=== PATIENT | female | born 1985 | race African-American/Black ===

== ENCOUNTER 2020-01-29 09:18 | Emergency (ER) | payer OTHER ==
[2020-01-29 09:55] LABS: #Basophils 0.1 thou/uL (0.0-0.2); #Eosinphils 0.1 thou/uL (0.0-0.7); #Monocytes 0.5 thou/uL (0.11-0.59); #Neutrophils 4.6 thou/uL (1.40-6.50); %Basophils 0.7 % (0.0-1.0); %Eosinophils 1.8 % (0.0-10.0); %Lymphocytes 27.5 % (21.0-51.0); %Monocytes 6.8 % (0.0-10.0); %Neutrophils 63.2 % (42.0-75.0); Hemoglobin 14.1 g/dL (12.0-16.0); Mean Corpuscular HGB CONC 33.7 g/dL (32.0-36.0); Mean Corpuscular Hemoglobin 32.7 pg (27.0-31.0); Platelet Count 200 thou/uL (130-400); White Blood Cell (WBC) Count 7.2 thou/uL (4.8-10.8)
[2020-01-29 10:33] LABS: Anion Gap 13 mmol/L (10-20); BUN (Urea Nitrogen) 12 mg/dL (7.0-18.7); Calc. Creatinine Clearance 0 mL/min (70-130); Carbon Dioxide 22 mmol/L (22-29); Chloride 105 mmol/L (98-107); Potassium 4.3 mmol/L (3.5-5.1); Sodium 136 mmol/L (136-145)
[2020-01-29 10:34] LABS: ALT (SGPT) 17 U/L (8-55); AST (SGOT) 24 U/L (5-34); Albumin 3.4 g/dL (3.5-5.0); Alkaline Phosphatase 101 U/L (40-110); Bilirubin, Total 0.3 mg/dL (0.2-1.2); Calcium 8.1 mg/dL (7.8-10.44); Globulin 3.8 g/dL (2.4-3.5); Glucose 97 mg/dL (70-105); Protein, Total 7.2 g/dL (6.0-8.3)
[2020-01-29 10:47] LABS: Bacteria/HPF None Seen HPF (None Seen); Bilirubin Negative (Negative); Blood, Urine 3+ (Negative); Clarity Clear (Clear); Glucose, Urine (Dipstick) Normal (Negative); Ketone, Urine Negative (Negative); Leukocyte Negative Leu/uL (Negative); Mucous/LPF 1+ LPF (<2+); Nitrite Negative (Negative); Protein, Urine (Dipstick) 10 mg/dL (Neg-Trace); RBC/HPF Greater than 50 HPF (0-3); Specific Gravity, Urine 1.017 (1.002-1.036); Squamous Epithelial 0-3 HPF (0-3); Urobilinogen Normal mg/dL (Less than 2); WBC/HPF 0-3 HPF (0-3); pH, Urine 6.5 (5.0-9.0)
--- NOTE | 2020-01-29 11:01 | ULT ---
PELVIC ULTRASOUND: HISTORY: Vaginal bleeding in a patient that is 7 weeks . TECHNIQUE: Multiplanar, hewitt scale, and color Doppler images were obtained in a transabdominal and transvaginal pelvic ultrasound. Spectral analysis of the Doppler waveforms of the ovaries was performed. FINDINGS: No gestational sac is seen within the uterus. The endometrial stripe is normal in thickness measurin g 7 mm. No free fluid is seen in the pelvis. Both ovaries are normal in size and appearance and demonstrate normal internal flow. A dominant follicle is seen in the right ovary measuring 1.5 cm in size. No e ctopic is identified. IMPRESSION: No evidence of intrauterine or ectopic . POS: [facility]
== END 2020-01-29 11:42 | disposition home or self-care (01) ==
LOC: ERS 09:18
DX: N93.9 Abnormal uterine and vaginal bleeding, unspecified (principal); I10 Essential (primary) hypertension; F17.210 Nicotine dependence, cigarettes, uncomplicated; Z79.899 Other long term (current) drug therapy
CPT/HCPCS: 36415; 76856; 80053; 81003; 81015; 84702; 85025; 86900; 86901

== ENCOUNTER 2021-04-13 12:25 | Inpatient (IN) | payer OTHER ==
[2021-04-13 12:58] LABS: #Basophils 0.1 thou/uL (0.0-0.2); #Eosinphils 0.1 thou/uL (0.0-0.7); #Lymphocytes 2.3 thou/uL (1.20-3.40); #Monocytes 0.7 thou/uL (0.11-0.59); #Neutrophils 8.7 thou/uL (1.40-6.50); %Basophils 0.8 % (0.0-1.0); %Eosinophils 0.8 % (0.0-10.0); %Lymphocytes 19.4 % (21.0-51.0); %Monocytes 5.8 % (0.0-10.0); %Neutrophils 73.2 % (42.0-75.0); Hemoglobin 14.3 g/dL (12.0-16.0); Mean Corpuscular HGB CONC 33.2 g/dL (32.0-36.0); Mean Corpuscular Hemoglobin 32.1 pg (27.0-31.0); Mean Corpuscular Volume 96.6 fL (78.0-98.0); Mean Platelet Volume 8.7 fL (7.4-10.4); Platelet Count 202 thou/uL (130-400); RBC Distribution Width 14.3 % (11.5-14.5); Red Blood Cell (RBC) Count 4.47 mill/uL (4.20-5.40); White Blood Cell (WBC) Count 11.9 thou/uL (4.8-10.8)
[2021-04-13 13:30] LABS: ALT (SGPT) 13 U/L (8-55); AST (SGOT) 19 U/L (5-34); Albumin 3.9 g/dL (3.5-5.0); Alkaline Phosphatase 141 U/L (40-110); Anion Gap 14 mmol/L (10-20); BUN (Urea Nitrogen) 14 mg/dL (7.0-18.7); Bilirubin, Total 0.6 mg/dL (0.2-1.2); Calc. Creatinine Clearance 0 mL/min (70-130); Calcium 9.2 mg/dL (7.8-10.44); Carbon Dioxide 34 mmol/L (22-29); Chloride 90 mmol/L (98-107); Globulin 4.2 g/dL (2.4-3.5); Glucose 91 mg/dL (70-105); Protein, Total 8.1 g/dL (6.0-8.3); Sodium 136 mmol/L (136-145)
[2021-04-13] MEDS ORDERED: niCARdipine 25 MG/10 ML VIAL ONE (13:46)
[2021-04-13] MEDS ORDERED: Benzocaine 20% Spray 60 ML CAN ONE (13:58)
[2021-04-13] MEDS ORDERED: Acetaminophen 500 MG TAB ONE (13:58)
[2021-04-13] MEDS ORDERED: Potassium Chloride 20 MEQ TAB ONE (13:58)
[2021-04-13 14:06] LABS: BHCG - Serum Negative (NEGATIVE); Pregs Control Background? CLEAR/WHITE (CLR/WHITE); Pregs Control Bar Appear? YES (CONTROL BAR)
[2021-04-13 14:08] LABS: CKMB 1.5 ng/mL (0-6.6)
[2021-04-13] MEDS ORDERED: NS 0.9% w/ 20 MEQ KCL 1,000 ML ONE (14:20)
[2021-04-13] MEDS ORDERED: Ibuprofen 200 MG TAB ONE (15:20)
[2021-04-13 15:25] LABS: Bacteria/HPF None Seen HPF (None Seen); Bilirubin Negative (Negative); Blood, Urine 3+ (Negative); Clarity Clear (Clear); Glucose, Urine (Dipstick) Normal (Negative); Ketone, Urine Negative (Negative); Leukocyte Negative Leu/uL (Negative); Nitrite Negative (Negative); Protein, Urine (Dipstick) 50 mg/dL (Neg-Trace); Specific Gravity, Urine 1.006 (1.002-1.036); Squamous Epithelial 0-3 HPF (0-3); Urobilinogen Normal mg/dL (Less than 2); WBC/HPF 0-3 HPF (0-3); pH, Urine 7.5 (5.0-9.0)
[2021-04-13] MEDS ORDERED: Potassium Chloride 20 MEQ TAB PO SCH (16:00)
[2021-04-13] MEDS ORDERED: Electrolyte Replacement Protocol 1 EACH FS PRN (16:31)
[2021-04-13] MEDS ORDERED: Potassium Chloride 20 MEQ/100 ML PREMIX BAG ONE (16:34)
[2021-04-13 17:13] LABS: SARS-CoV-2 NAA Rapid Test Not Detected (NotDetected)
[2021-04-13 17:17] LABS: CKMB 1.4 ng/mL (0-6.6)
[2021-04-13] MEDS ORDERED: Acetaminophen 325 MG TAB PO PRN (17:29)
[2021-04-13] MEDS: Potassium Chloride 20 MEQ in Premix Bag 1 BAG IVPB SCH ×2 (17:38→17:51)
[2021-04-13 17:44] LABS: Amphetamine Not Detected (NotDetected); Barbiturates Screen Not Detected (NotDetected); Benzodiazepine Screen Not Detected (NotDetected); Cocaine Metabolite Screen Not Detected (NotDetected); Methadone Not Detected (NotDetected); Methamphetamine Not Detected (NotDetected); Opiate Screen Not Detected (NotDetected); Oxycodone Screen Not Detected (NotDetected); Phencyclidine (PCP) Not Detected (NotDetected); THC/Cannabinoid Screen Not Detected (NotDetected); Tricyclic Screen Not Detected (NotDetected)
[2021-04-13] MEDS: niCARdipine 25 MG in Sodium Chloride 0.9% 250 ML 250 ML IVPB SCH ×2 (17:50→23:19)
[2021-04-13] MEDS: Potassium Chloride 20 MEQ in Lactated Ringer's 1,000 ML IV SCH (18:14)
[2021-04-13] MEDS: Ondansetron PF 4 MG/2 ML Vial IVP SCH (18:14)
[2021-04-13] MEDS ORDERED: NIFEdipine XL 30 MG TAB PO SCH (21:00)
[2021-04-13] MEDS ORDERED: Carvedilol 6.25 MG TAB PO SCH (21:00)
[2021-04-13 21:10] LABS: Creatinine, Urine 23.14 mg/dL (47-110)
[2021-04-13 21:11] LABS: Protein, Urine Random Quant 51 mg/dL (1-14); Sodium, Urine 77 mmol/L (Not Available)
[2021-04-14 01:49] LABS: Eosinophils 2 % (0-10); Hemoglobin 12.8 g/dL (12.0-16.0); Lymphocytes 26 % (21-51); MDiff Complete? YES; Mean Corpuscular HGB CONC 33.4 g/dL (32.0-36.0); Mean Corpuscular Hemoglobin 32.8 pg (27.0-31.0); Mean Corpuscular Volume 98.1 fL (78.0-98.0); Mean Platelet Volume 8.4 fL (7.4-10.4); Monocytes 10 % (0-10); Neutrophil 62 % (42-75); Platelet Count 198 thou/uL (130-400); Platelet Morphology Comment Appears Adequate; RBC Distribution Width 14.3 % (11.5-14.5); RBC Morphology Normal; Red Blood Cell (RBC) Count 3.89 mill/uL (4.20-5.40); White Blood Cell (WBC) Count 11.6 thou/uL (4.8-10.8)
[2021-04-14] MEDS: Ondansetron PF 4 MG/2 ML Vial IVP SCH ×2 (02:11→18:37)
[2021-04-14 02:18] LABS: ALT (SGPT) 11 U/L (8-55); AST (SGOT) 17 U/L (5-34); Albumin 3.5 g/dL (3.5-5.0); Alkaline Phosphatase 121 U/L (40-110); Anion Gap 11 mmol/L (10-20); BUN (Urea Nitrogen) 12 mg/dL (7.0-18.7); Bilirubin, Total 0.5 mg/dL (0.2-1.2); Calc. Creatinine Clearance 60 mL/min (70-130); Calcium 8.4 mg/dL (7.8-10.44); Carbon Dioxide 31 mmol/L (22-29); Chloride 94 mmol/L (98-107); Globulin 3.4 g/dL (2.4-3.5); Glucose 91 mg/dL (70-105); Protein, Total 6.9 g/dL (6.0-8.3); Sodium 134 mmol/L (136-145)
[2021-04-14 02:20] LABS: Potassium 2.1 mmol/L (3.5-5.1)
[2021-04-14] MEDS: Potassium Chloride 20 MEQ in Premix Bag 1 BAG IVPB SCH ×2 (02:50→04:51)
[2021-04-14 04:16] LABS: Magnesium 1.8 mg/dL (1.6-2.6)
[2021-04-14] MEDS: Potassium Chloride 20 MEQ TAB PO SCH ×5 (07:11→23:28)
[2021-04-14] MEDS ORDERED: Magnesium 2 GM/50 ML(in water) 2 GM in Premix Bag 1 BAG IVPB SCH (09:00)
[2021-04-14] MEDS: NIFEdipine XL 60 MG TAB PO SCH ×2 (09:20→20:50)
[2021-04-14] MEDS: Carvedilol 25 MG TAB PO SCH ×2 (09:21→20:50)
[2021-04-14 12:30] LABS: Potassium 2.4 mmol/L (3.5-5.1)
[2021-04-14] MEDS: Potassium Chloride 20 MEQ in Lactated Ringer's 1,000 ML IV SCH ×2 (15:36→18:38)
[2021-04-14 15:59] LABS: Anion Gap 10 mmol/L (10-20); BUN (Urea Nitrogen) 10 mg/dL (7.0-18.7); Calc. Creatinine Clearance 60 mL/min (70-130); Calcium 8.6 mg/dL (7.8-10.44); Carbon Dioxide 31 mmol/L (22-29); Chloride 98 mmol/L (98-107); Glucose 126 mg/dL (70-105); Sodium 136 mmol/L (136-145)
[2021-04-14 16:04] LABS: Potassium 2.5 mmol/L (3.5-5.1)
[2021-04-14] MEDS ORDERED: Electrolyte Replacement Protocol FS PRN (18:15)
[2021-04-14 22:56] LABS: Anion Gap 10 mmol/L (10-20); BUN (Urea Nitrogen) 13 mg/dL (7.0-18.7); Calc. Creatinine Clearance 58 mL/min (70-130); Calcium 8.2 mg/dL (7.8-10.44); Carbon Dioxide 28 mmol/L (22-29); Chloride 100 mmol/L (98-107); Glucose 152 mg/dL (70-105); Sodium 135 mmol/L (136-145)
[2021-04-14 23:10] LABS: Potassium 2.8 mmol/L (3.5-5.1)
[2021-04-15] MEDS: Ondansetron PF 4 MG/2 ML Vial IVP SCH ×2 (01:24→10:53)
[2021-04-15] MEDS: Potassium Chloride 20 MEQ TAB PO SCH (02:17)
[2021-04-15 05:07] VITALS: BMI 28.0
[2021-04-15] MEDS: Potassium Chloride 20 MEQ in Lactated Ringer's 1,000 ML IV SCH ×2 (06:01→14:18)
[2021-04-15 06:19] LABS: Mean Corpuscular HGB CONC 33.4 g/dL (32.0-36.0); Mean Corpuscular Hemoglobin 32.7 pg (27.0-31.0); Mean Corpuscular Volume 97.8 fL (78.0-98.0); Mean Platelet Volume 8.5 fL (7.4-10.4); Platelet Count 197 thou/uL (130-400); RBC Distribution Width 14.4 % (11.5-14.5); Red Blood Cell (RBC) Count 3.66 mill/uL (4.20-5.40)
[2021-04-15 06:28] LABS: INR-International Normal Ratio 0.9; PTT 25.7 sec (22.9-36.1); Prothrombin Time 11.8 sec (12.0-14.7)
[2021-04-15 06:33] LABS: Eosinophils 2 % (0-10); Lymphocytes 31 % (21-51); MDiff Complete? YES; Monocytes 6 % (0-10); Neutrophil 61 % (42-75)
[2021-04-15 06:47] LABS: ALT (SGPT) 11 U/L (8-55); AST (SGOT) 14 U/L (5-34); Albumin 3.2 g/dL (3.5-5.0); Alkaline Phosphatase 108 U/L (40-110); Anion Gap 10 mmol/L (10-20); BUN (Urea Nitrogen) 14 mg/dL (7.0-18.7); Bilirubin, Total 0.3 mg/dL (0.2-1.2); Calc. Creatinine Clearance 62 mL/min (70-130); Calcium 8.3 mg/dL (7.8-10.44); Carbon Dioxide 27 mmol/L (22-29); Chloride 104 mmol/L (98-107); Glucose 114 mg/dL (70-105); Potassium 3.5 mmol/L (3.5-5.1); Protein, Total 6.2 g/dL (6.0-8.3); Sodium 137 mmol/L (136-145)
[2021-04-15] MEDS ORDERED: Magnesium 2 GM/50 ML(in water) 2 GM in Premix Bag 1 BAG IVPB SCH (08:00)
[2021-04-15] MEDS: Carvedilol 25 MG TAB PO SCH ×2 (08:18→20:55)
[2021-04-15] MEDS: NIFEdipine XL 60 MG TAB PO SCH ×2 (08:18→20:54)
[2021-04-16] MEDS: Potassium Chloride 20 MEQ in Lactated Ringer's 1,000 ML IV SCH ×3 (00:08→17:41)
[2021-04-16 06:05] LABS: ALT (SGPT) 13 U/L (8-55); AST (SGOT) 16 U/L (5-34); Albumin 3.2 g/dL (3.5-5.0); Alkaline Phosphatase 102 U/L (40-110); Anion Gap 11 mmol/L (10-20); BUN (Urea Nitrogen) 9 mg/dL (7.0-18.7); Bilirubin, Total 0.3 mg/dL (0.2-1.2); Calc. Creatinine Clearance 69 mL/min (70-130); Calcium 8.2 mg/dL (7.8-10.44); Carbon Dioxide 28 mmol/L (22-29); Chloride 103 mmol/L (98-107); Glucose 86 mg/dL (70-105); Magnesium 1.7 mg/dL (1.6-2.6); Protein, Total 6.2 g/dL (6.0-8.3); Sodium 139 mmol/L (136-145)
[2021-04-16] MEDS ORDERED: Magnesium 2 GM/50 ML(in water) 2 GM in Premix Bag 1 BAG IVPB SCH (06:15)
[2021-04-16 06:28] LABS: Potassium 2.6 mmol/L (3.5-5.1)
[2021-04-16 06:31] LABS: Eosinophils 4 % (0-10); Hemoglobin 11.4 g/dL (12.0-16.0); Lymphocytes 43 % (21-51); MDiff Complete? YES; Mean Corpuscular Hemoglobin 32.7 pg (27.0-31.0); Mean Corpuscular Volume 99.2 fL (78.0-98.0); Mean Platelet Volume 8.5 fL (7.4-10.4); Monocytes 5 % (0-10); Neutrophil 48 % (42-75); Platelet Count 195 thou/uL (130-400); RBC Distribution Width 14.3 % (11.5-14.5); Red Blood Cell (RBC) Count 3.47 mill/uL (4.20-5.40); White Blood Cell (WBC) Count 9.5 thou/uL (4.8-10.8)
[2021-04-16] MEDS ORDERED: Potassium Chloride 20 MEQ TAB PO SCH ×2 (06:45→11:00)
[2021-04-16] MEDS: Carvedilol 25 MG TAB PO SCH ×2 (08:59→20:08)
[2021-04-16] MEDS: NIFEdipine XL 60 MG TAB PO SCH ×2 (08:59→20:08)
[2021-04-16] MEDS ORDERED: Polyethylene Glycol 3350 17 GM Packet PO PRN (09:48)
[2021-04-16] MEDS: Potassium Chloride 20 MEQ TAB PO SCH ×3 (10:20→18:59)
[2021-04-16] MEDS: Acetylcysteine 20% 200 MG/ML 30 ML VIAL PO SCH ×2 (10:20→20:08)
[2021-04-16] MEDS: Docusate 100 MG CAP PO SCH (20:08)
[2021-04-17] MEDS: Potassium Chloride 20 MEQ in Lactated Ringer's 1,000 ML IV SCH (05:23)
[2021-04-17 06:35] LABS: ALT (SGPT) 16 U/L (8-55); AST (SGOT) 17 U/L (5-34); Albumin 3.2 g/dL (3.5-5.0); Alkaline Phosphatase 109 U/L (40-110); Anion Gap 11 mmol/L (10-20); BUN (Urea Nitrogen) 8 mg/dL (7.0-18.7); Bilirubin, Total 0.3 mg/dL (0.2-1.2); Calc. Creatinine Clearance 71 mL/min (70-130); Calcium 8.1 mg/dL (7.8-10.44); Carbon Dioxide 25 mmol/L (22-29); Chloride 106 mmol/L (98-107); Globulin 3.1 g/dL (2.4-3.5); Glucose 94 mg/dL (70-105); Potassium 3.2 mmol/L (3.5-5.1); Protein, Total 6.3 g/dL (6.0-8.3); Sodium 139 mmol/L (136-145)
[2021-04-17 06:45] LABS: Hemoglobin 11.4 g/dL (12.0-16.0); Mean Corpuscular HGB CONC 31.4 g/dL (32.0-36.0); Mean Corpuscular Hemoglobin 31.4 pg (27.0-31.0); Mean Platelet Volume 8.7 fL (7.4-10.4); Platelet Count 218 thou/uL (130-400); RBC Distribution Width 14.6 % (11.5-14.5); Red Blood Cell (RBC) Count 3.62 mill/uL (4.20-5.40); White Blood Cell (WBC) Count 9.7 thou/uL (4.8-10.8)
[2021-04-17 07:24] LABS: Band 2 % (5-11); Eosinophils 1 % (0-10); Hypochromia SLIGHT = 6-15 cells (100X) (0-5/hpf); Lymphocytes 24 % (21-51); MDiff Complete? YES; Macrocytosis SLIGHT = 6-15 cells (100X) (0-5/hpf); Monocytes 8 % (0-10); Neutrophil 58 % (42-75); Platelet Morphology Comment Appears Adequate; Polychromasia SLIGHT = 2-3 cells (100X) (0-2/hpf); Reactive Lymphocytes 7 % (0-10); Target Cells SLIGHT = 2-5 cells (100X) (0-1/hpf); Tear Drops SLIGHT = 2-5 cells (100X) (0-1/hpf)
[2021-04-17] MEDS ORDERED: Spironolactone 25 MG TAB PO SCH (08:00)
[2021-04-17 08:21] VITALS: BP 138/89; TEMP 98.1
[2021-04-17] MEDS ORDERED: Iopamidol-370 76% 500 ML 1 ML ONE (08:57)
[2021-04-17] MEDS: NIFEdipine XL 60 MG TAB PO SCH (09:05)
[2021-04-17] MEDS: Docusate 100 MG CAP PO SCH (09:06)
[2021-04-17] MEDS: Carvedilol 25 MG TAB PO SCH (09:06)
[2021-04-17] MEDS: Potassium Chloride 20 MEQ TAB PO SCH ×2 (09:06→13:15)
[2021-04-17] MEDS ORDERED: Potassium Chloride 20 MEQ TAB PO SCH (12:00)
[2021-04-17] MEDS: Acetylcysteine 20% 200 MG/ML 30 ML VIAL PO SCH (15:39)
[2021-04-17 15:56] LABS: Anion Gap 13 mmol/L (10-20); BUN (Urea Nitrogen) 7 mg/dL (7.0-18.7); Calc. Creatinine Clearance 70 mL/min (70-130); Calcium 8.7 mg/dL (7.8-10.44); Carbon Dioxide 21 mmol/L (22-29); Chloride 105 mmol/L (98-107); Glucose 111 mg/dL (70-105); Potassium 3.7 mmol/L (3.5-5.1); Sodium 135 mmol/L (136-145)
[2021-04-17 16:17] LABS: ANA Symphony (Qualitative) Negative (Negative); ANA Symphony (Quantitative) 0.5 Ratio (< 0.7 Negative); dsDNA IgG Antibody 0.9 IU/mL (<10 Negative)
[2021-04-21 15:38] LABS: Renin Activity 34.99 ng/mL/hr (0.167-5.380)
[2021-04-26 11:15] LABS: 5 HIAA,Urine 3.1 mg/L (Undefined); 5 HIAA-24H Urine 3.7 mg/24 hr (0.0-14.9)
[2021-04-27 17:12] LABS: Metanephrine,Plasma Comment: pg/mL (0.0-88.0); Normetanephrine,Pl Comment: pg/mL (0.0-210.1)
== END 2021-04-17 16:00 | disposition home or self-care (01) | DRG 281 ==
LOC: ERS 12:25 → CCU 15:30 → T4-B 04-15 10:11
PROVIDERS: ADMIT Internal Medicine; ATTEND Internal Medicine
DX: I15.0 Renovascular hypertension (principal); I21.A1 Myocardial infarction type 2; I16.1 Hypertensive emergency; Z20.822 Contact with and (suspected) exposure to COVID-19; N17.9 Acute kidney failure, unspecified; E87.3 Alkalosis; E87.1 Hypo-osmolality and hyponatremia; I43 Cardiomyopathy in diseases classified elsewhere; I70.1 Atherosclerosis of renal artery; I13.0 Hypertensive heart and chronic kidney disease with heart failure and stage 1 through stage 4 chronic kidney disease, or unspecified chronic kidney disease; E87.6 Hypokalemia; R77.8 Other specified abnormalities of plasma proteins; N18.30 Chronic kidney disease, stage 3 unspecified; E83.42 Hypomagnesemia; D63.1 Anemia in chronic kidney disease; E66.9 Obesity, unspecified; F17.210 Nicotine dependence, cigarettes, uncomplicated; E86.9 Volume depletion, unspecified; E86.0 Dehydration; E26.9 Hyperaldosteronism, unspecified; I08.1 Rheumatic disorders of both mitral and tricuspid valves; Z68.30 Body mass index [BMI] 30.0-30.9, adult; Z98.890 Other specified postprocedural states; Z91.14 Patient's other noncompliance with medication regimen; Z79.899 Other long term (current) drug therapy
CPT/HCPCS: 36415; 36416; 70450; 71045; 74174; 76770; 80053; 80306; 81003; 81015; 82088; 82550; 82553; 82570; 83497; 83735; 83835; 83880; 84156; 84244; 84300; 84484; 84540; 84703; 85007; 85025; 85027; 85610; 85730; 86038; 86225; 87081; 87430; 93005; 93306; 93976; 94760; 96374; 96375; J0132; J2405; J3475; J3480; J7050; J7120; Q9967; U0002